=== PATIENT | female | born 1945 | race African-American/Black ===

== ENCOUNTER 2021-12-03 13:12 | Emergency (ER) | payer BC, MEDICARE ==
[~2021-12-03] VITALS: Ht 165.1 cm; Wt 82.0 kg
[2021-12-03] MEDS ORDERED: LIDOCAINE 5% PATCH TOP NR (17:30)
[2021-12-03] MEDS ORDERED: ACETAMINOPHEN 325MG TABLET PO ONE (17:30)
[2021-12-03 19:37] LABS: BASOPHILS % 0.9 % (0.0-2.0); EOSINOPHILS % 1.2 % (0.0-5.0); HEMATOCRIT. 37.4 % (36.0-48.0); HEMOGLOBIN. 12.1 g/dL (12.0-16.0); LYMPHOCYTES % 18.3 % (20.0-50.0); MEAN CORPUSCULAR HEMOGLOBIN 29.1 pg (28.0-32.0); MEAN CORPUSCULAR VOLUME 89.8 fL (81.0-99.0); MEAN PLATELET VOLUME 8.6 fl (7.4-10.4); MONOCYTES % 8.5 % (2.0-8.0); NEUTROPHILS % 71.1 % (40.0-76.0); PLATELET 200 x1000/uL (130-400); RED BLOOD CELL COUNT 4.17 mill/uL (4.2-5.4); RED CELL DISTRIBUTION WIDTH 15.3 % (11.6-14.6)
[2021-12-03 19:43] LABS: CHLORIDE 111 mEq/L (98-107)
[2021-12-03 19:48] LABS: ETHANOL BLOOD < 10 mg/dL
[2021-12-03 20:12] LABS: HCG SCREEN NEGATIVE
[2021-12-03] MEDS ORDERED: LIDO700A15 TP (21:24)
[2021-12-03] MEDS ORDERED: BACL-141 MT (21:24)
[2021-12-03] MEDS ORDERED: ACET-2708 MT (21:24)
[2021-12-03 22:10] VITALS: BP 158/95
== END 2021-12-03 22:15 | disposition home or self-care (01) ==
LOC: ER 13:12
DX: M54.59 Other low back pain (principal); R60.0 Localized edema; I10 Essential (primary) hypertension; M62.838 Other muscle spasm; E66.9 Obesity, unspecified; Z68.30 Body mass index [BMI] 30.0-30.9, adult
CPT/HCPCS: 36415; 71045; 80053; 80320; 83880; 84484; 84703; 85025; 93970; 99285; G0480